=== PATIENT | female | born 1945 | race Two or more races ===

== ENCOUNTER → 2019-07-07 | Outpatient (CLI) | payer MEDICAID | END | disposition home or self-care (01) | LOC: PUC 12:44 | DX: S52.502A Unspecified fracture of the lower end of left radius, initial encounter for closed fracture (principal); X58.XXXA Exposure to other specified factors, initial encounter; Y93.89 Activity, other specified; Y92.89 Other specified places as the place of occurrence of the external cause; Y99.8 Other external cause status ==